=== PATIENT | male | born 1985 | race Caucasian/White ===

== ENCOUNTER 2018-03-10 01:59 | Emergency (ER) | payer OTHER ==
[2018-03-10 02:13] VITALS: BP 121/86; PULSE 76; TEMP 97.3; BMI 36.6
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
== END 2018-03-10 02:53 | disposition home or self-care (01) ==
LOC: JER 01:59
DX: Z77.21 Contact with and (suspected) exposure to potentially hazardous body fluids (principal); Y35.811A Legal intervention involving manhandling, law enforcement official injured, initial encounter; Y93.89 Activity, other specified; Y92.89 Other specified places as the place of occurrence of the external cause; Y99.0 Civilian activity done for income or pay
CPT/HCPCS: 99282-25

== ENCOUNTER 2018-11-29 20:05 | Emergency (ER) | payer OTHER ==
[2018-11-29 20:16] VITALS: BP 146/90; PULSE 66; TEMP 98.4; BMI 37.3
--- NOTE | 2018-11-29 20:18 | PDOC ---
Rapid Medical Evaluation Chief Complaint: Pain, Acute Time Seen by Provider: 11/29/18 20:14 Medical Evaluation: Allergies Allergy/AdvReac Type Severity Reaction Status Date / Time No Known Allergies Allergy Verified 03/10/18 02:12 11/29/18 20:15 33 year old male c/o " feeling a pop" in left knee while going down the stairs. history of ACL repair to left knee PE; patient alert ox3. able to leg raise A: left knee pain P: left knee xray. patient to fast track for further management of care. Discharge Disposition - Diagnosis Knee pain, left Qualifiers: Chronicity: acute Qualified Code(s): M25.562 - Pain in left knee - Referrals - Patient Instructions - Post Discharge Activity
--- NOTE | 2018-11-29 20:42 | PDOC ---
History of Present Illness - General Chief Complaint: Pain, Acute Stated Complaint: YPD/LEFT LEG PAIN Time Seen by Provider: 11/29/18 20:14 - History of Present Illness Initial Comments: 11/29/18 20:37 Review 3-year-old male without comorbidities presents for evaluation of left knee pain after a rotational type injury while coming down the steps today. He does have a history of a prior ACL done Past History - Past Medical History Allergies/Adverse Reactions: Allergies Allergy/AdvReac Type Severity Reaction Status Date / Time No Known Allergies Allergy Verified 11/29/18 20:15 Home Medications: Ambulatory Orders NK [No Known Home Medication] 03/10/18 COPD: No - Immunization History Immunization Up to Date: Yes - Suicide/Smoking/Psychosocial Hx Smoking History: Never smoked Have you smoked in the past 12 months: No Hx Alcohol Use: No Drug/Substance Use Hx: No Substance Use Type: None Review of Systems - Review of Systems Musculoskeletal: Yes: Joint Pain *Physical Exam - Vital Signs Last Vital Signs Temp Pulse Resp BP Pulse Ox 98.4 F 66 18 146/90 97 11/29/18 20:13 11/29/18 20:13 11/29/18 20:13 11/29/18 20:13 11/29/18 20:13 - Physical Exam Comments: 11/29/18 20:39 Left knee skin color and temperature are normal range of motion 0-90. Extensor mechanism is intact. There is mild tenderness about the lateral and medial femoral condyles. No joint line tenderness. One plus to 2 LOC and's test. No Varis or valgus instability he is neurovascularly intact. Medical Decision Making - Medical Decision Making 11/29/18 20:40 X-rays of the left knee show prior ACL surgery with autograft, I will refer the patient back to orthopedic surgery for further evaluation and treatment. Knee immobilizer weight-bear as tolerated with crutches. *DC/Admit/Observation/Transfer Diagnosis at time of Disposition: Knee sprain Knee pain, left Qualifiers: Chronicity: acute Qualified Code(s): M25.562 - Pain in left knee - Discharge Dispostion Disposition: HOME Condition at time of disposition: Stable Decision to Admit order: No - Referrals Referrals: Susi Moore MD [Primary Care Provider] - Barry Go MD [Staff Physician] - - Patient Instructions Printed Discharge Instructions: Knee Sprain, DI for Knee Sprain Additional Instructions: He may weight-bear as tolerated with the knee immobilizer and crutches. Tylenol and Motrin as directed for pain. Return to the emergency room should symptoms worsen or go unresolved. Follow-up with orthopedic surgery in 1-2 days for further evaluation and treatment options. - Post Discharge Activity Forms/Work/School Notes: Back to Work
== END 2018-11-29 21:08 | disposition home or self-care (01) ==
LOC: JERFT 20:05
PROC: 2W3QXYZ Immobilization of Right Lower Leg using Other Device (ICD-10-PCS; principal; 2018-11-29)
DX: S83.8X2A Sprain of other specified parts of left knee, initial encounter (principal); X50.1XXA Overexertion from prolonged static or awkward postures, initial encounter; Y93.01 Activity, walking, marching and hiking; Y92.29 Other specified public building as the place of occurrence of the external cause; Y99.0 Civilian activity done for income or pay
CPT/HCPCS: 73562-TC-LT-FY; 99281-25

== ENCOUNTER 2022-01-20 21:49 | Emergency (ER) | payer OTHER ==
[2022-01-20 22:01] VITALS: BP 131/83; PULSE 88; TEMP 99; BMI 38.0
== END 2022-01-21 00:53 | disposition home or self-care (01) ==
LOC: FER 21:49
DX: S80.01XA Contusion of right knee, initial encounter (principal); S60.512A Abrasion of left hand, initial encounter; S50.11XA Contusion of right forearm, initial encounter; Y04.8XXA Assault by other bodily force, initial encounter
CPT/HCPCS: 73090-TC-RT-FY; 99283-25

== ENCOUNTER 2022-03-15 19:28 | Emergency (ER) | payer OTHER ==
[2022-03-15 19:38] VITALS: BP 149/86; PULSE 67; RESP 18; TEMP 98.6; BMI 38.0
[2022-03-15] MEDS ORDERED: IBUPROFEN 600 MG TABLET (FP) PO ONE ×2 (20:22→20:25)
== END 2022-03-15 20:40 | disposition home or self-care (01) ==
LOC: FER 19:28
PROC: 0HQQXZZ Repair Finger Nail, External Approach (ICD-10-PCS; principal; 2022-03-15)
DX: S60.142A Contusion of left ring finger with damage to nail, initial encounter (principal); W23.1XXA Caught, crushed, jammed, or pinched between stationary objects, initial encounter
CPT/HCPCS: 73140-TC-LT-FY; 99283-25

== ENCOUNTER 2023-10-21 18:28 | Emergency (ER) | payer OTHER ==
[2023-10-21 18:35] VITALS: BP 139/80; PULSE 89; RESP 17; TEMP 98.7; BMI 37.3
== END 2023-10-21 19:44 | disposition home or self-care (01) ==
LOC: FER 18:28
DX: S89.92XA Unspecified injury of left lower leg, initial encounter (principal); X50.1XXA Overexertion from prolonged static or awkward postures, initial encounter
CPT/HCPCS: 99283-25

== ENCOUNTER 2023-11-28 18:04 | Emergency (ER) | payer OTHER ==
[2023-11-28] MEDS: KETOROLAC TROMETHAMINE 15 MG/ML VIAL IM ONE (18:21)
[2023-11-28 18:25] VITALS: BP 140/95; PULSE 79; RESP 18; TEMP 98.2; BMI 38.9
== END 2023-11-28 18:40 | disposition home or self-care (01) ==
LOC: FER 18:04
PROC: 3E0233Z Introduction of Anti-inflammatory into Muscle, Percutaneous Approach (ICD-10-PCS; principal; 2023-11-28)
DX: M54.2 Cervicalgia (principal); Y35.91XA Legal intervention, means unspecified, law enforcement official injured, initial encounter
CPT/HCPCS: 99284-25